=== PATIENT | female | born 1980 | race Caucasian/White ===

== ENCOUNTER 2018-03-04 07:46 | Emergency (ER) | payer MEDICAID ==
[2018-03-04] MEDS ORDERED: predniSONE 20 MG TAB PO ONE (08:42)
[2018-03-04] MEDS ORDERED: diphenhydrAMINE 25 MG CAP PO ONE (08:42)
--- NOTE | 2018-03-04 08:47 | EDPHY ---
H & P Time Seen by Provider: 03/04/18 08:28 HPI/ROS: HPI Nasal congestion, sinus pressure, rash. 37-year-old female by private vehicle with significant other. Patient complains of a sore throat and nasal congestion starting 2 days ago, this was followed by development of a nonproductive cough, then resolution of her sore throat and a rash over her legs arms and trunk which is worse today. She also reports having intermittent fever and worsening sinus pressure/pain on the right side of her face. ROS: Constitutional: As above, no chills. No weakness. Eyes: No discharge. No changes in vision. ENT: As above. Respiratory: As above. No shortness of breath. Cardiac: No chest pain, no palpitations. Gastrointestinal: No abdominal pain, no vomiting, no diarrhea. Genitourinary: No hematuria. No dysuria or increased frequency with urination. Musculoskeletal: No back pain. No neck pain. No myalgias or arthralgias. Skin: No rashes. Neurological: As above. No focal weakness or altered sensation. Past medical history: D and C, cholecystectomy, liver resection. Social history: Here with boyfriend. Nonsmoker. Denies alcohol PE Physical Exam: General Appearance: Alert, no distress. This patient is responding to questions appropriately and in full sentences. This patient appears well- hydrated and well-nourished. Eyes: Pupils equal and round no pallor or injection. No lid edema, erythema or injection. ENT, Mouth: Mucous membranes are moist. The pharyngeal tissues are unremarkable. No edema or swelling. No asymmetry suggestive of abscess. No erythema or exudates. Tympanic membranes and external auditory canals are normal by speculum exam bilaterally. She has tenderness on palpation of the maxillary sinus. There is no associated erythema, swelling/edema to this area. Dentition is intact. The gingival and paragingival tissues are unremarkable on the right side. No asymmetric facial swelling or erythema. No submandibular , submental, cervical lymphadenopathy. Respiratory: There are no retractions, lungs are clear to auscultation with good air movement bilaterally. Intermittent dry cough. Cardiovascular: Regular rate and rhythm. No tachycardia. No murmur. Neurological: Motor sensory function is grossly intact. Cranial nerves are normal. Gait is normal. No track faye. This does not appear to be scabies. Skin: Warm and dry, erythematous, macular papular blanching rash over trunk extremities and neck. No petechiae. Musculoskeletal: Neck is supple and nontender. No pain on flexion of the neck. Extremities are symmetrical. All joints range without pain or impingement. Psychiatric: No agitation. No depression. Database: EKG: Imaging: Procedures: Emergency department course: Vital signs reviewed. Tachycardia resolved on my exam. Patient's presentation is consistent with a viral syndrome. There is a concern about a bacterial etiology of sinusitis although this is likely viral as well. The rash will be treated with a short course of prednisone and antihistamines. I will also provide her a prescription for Augmentin which she can fill in a couple of days if her sinus pressure is not improving in that time. She is in agreement with this plan. I discussed follow-up through the [facility]. Return to emergency department precautions thoroughly reviewed with her. All of her questions were answered. She was discharged from the emergency department in good condition. She received 50 mg of oral Benadryl and 60 mg of oral prednisone in our emergency department. Differential Diagnosis: The differential diagnosis on this patient includes but is not limited to viral upper respiratory infection, viral sinusitis, bacterial sinusitis, rash. Meningococcus, meningitis, meningitis, encephalitis, pneumonia unlikely. This represents a partial list of diagnoses considered. These considerations are based on history, physical exam, past history, reassessment and diagnostic testing. Smoking Status: Never smoked Constitutional: Initial Vital Signs Temperature (C) 36.6 C 03/04/18 07:55 Heart Rate 102 H 03/04/18 07:55 Respiratory Rate 20 03/04/18 07:55 Blood Pressure 120/87 H 03/04/18 07:55 O2 Sat (%) 96 03/04/18 07:55 O2 Delivery Mode Room Air Allergies/Adverse Reactions: erythromycin base Allergy (Verified 03/04/18 07:55) ibuprofen Allergy (Verified 03/04/18 07:55) Home Medications: Medication Instructions Recorded Amoxicillin/Clavulanate Pot 875 mg PO BID 7 Days tab 03/04/18 [Augmentin 875 mg tab] Tylenol 03/04/18 Medical Decision Making - Data Points Medications Given: Discontinued Medications Diphenhydramine HCl (Benadryl) 50 mg PO EDNOW ONE Stop: 03/04/18 08:43 Last Admin: 03/04/18 08:49 Dose: 50 mg Prednisone (Prednisone) 60 mg PO EDNOW ONE Stop: 03/04/18 08:43 Last Admin: 03/04/18 08:48 Dose: 60 mg Departure - Departure Disposition: Home, Routine, Self-Care Clinical Impression: Rash, Sinusitis, Upper respiratory infection Condition: Good Instructions: Sinusitis (ED), Upper Respiratory Infection (ED), Acute Rash (ED) Additional Instructions: Read and follow provided instructions. Follow-up with your primary care physician in 2-3 days for re-evaluation Take prednisone as prescribed for rash. Benadryl 25 mg caplets, these can be purchased [id number]. You can take up to 2 every 6-8 hours over the next 2-3 days for rash and itching. This will also help with the congestion. If he developed fever or your sinus pressure worsens, start antibiotic as discussed. Return to the emergency department for worsening symptoms, high fever, worsening headache or other serious concerns. Referrals: [facility],. [Clinic] - As per Instructions Felipe Guevara MD [Medical Doctor] - As per Instructions Prescriptions: Amoxicillin/Clavulanate Pot [Augmentin 875 mg tab] 875 mg PO BID 7 Days tab
[2018-03-04 09:04] VITALS: BP 110/67
== END 2018-03-04 09:02 | disposition home or self-care (01) ==
DX: J06.9 Acute upper respiratory infection, unspecified (principal); J32.9 Chronic sinusitis, unspecified; R21 Rash and other nonspecific skin eruption
CPT/HCPCS: J7512